=== PATIENT | female | born 1955 | race Caucasian/White ===

== ENCOUNTER 2017-05-11 12:35 | Day surgery (SDC) | payer OTHER ==
[~2017-05-11] VITALS: Ht 160 cm; Wt 109.0 kg
[~2017-05-11 12:35] MED LIST: 0.9% Sodium Chloride 1,000 ML IV SCH; GLUC1CAP35 PO; OMEG-86 PO; OMEG1CAP20 PO; Sodium Chloride LOK Flush 10 mL Syringe IV PRN; fentaNYL-PF 50 mCg/mL 2 mL Inj IVPUSH PRN
[2017-05-11 13:08] VITALS: BP 118/67; PULSE 44; RESP 16; O2SAT 97
[2017-05-11 14:54] VITALS: BP 112/69; PULSE 42; RESP 12; O2SAT 95
[2017-05-11 15:08] VITALS: BP 119/67; PULSE 42; RESP 12; O2SAT 95
[2017-05-11 15:09] VITALS: BP 113/74; PULSE 48; RESP 14; O2SAT 96
--- NOTE | 2017-05-11 20:31 | ENDO ---
[address] [address] ENDOSCOPY PROCEDURE PATIENT: MICHAEL MENESES : 1955 MR#: [id number] ADMIT: 05/11/2017 JOB ID: [id number] PROCEDURE: Colonoscopy. INDICATION: Patient with a personal history of colon polyps. Patient's ASA classification is two. Mallampati score is two. MEDICATIONS: Versed 5 mg, fentanyl 100 mcg. INSTRUMENT USED: PCF H 190 DL PREPARATION QUALITY: Good. PROCEDURE DETAILS: After informed consent was obtained, the patient was brought into the GI suite, where she was placed on oxygen via nasal cannula and monitored with continuous pulse oximeter, telemetry, and blood pressure monitoring. A time-out was performed, then she was placed in the left lateral decubitus position and medications were administered for sedation. A digital rectal exam was performed, which was unremarkable. The colonoscope was then inserted into the rectum and advanced under direct visualization to the cecum, which was identified by the presence of the ileocecal valve and appendiceal orifice. Once the cecum was reached, the colonoscope was withdrawn back into the rectum as the mucosa and lumen were examined. In the rectum, retroflexion was performed. Following retroflexion, the remaining air in the rectum was suctioned and the procedure was completed. FINDINGS: 1. In the ascending colon, there were two polyps ranging in size from 3 mm to 4 mm. Both polyps were removed using a cold snare. 2. In the transverse colon, there were four polyps ranging in size from 5 mm to approximately 9-10 mm. All polyps were removed using a hot snare. 3. In the descending colon, there were three polyps ranging in size from 4 mm to 7 mm. The polyps were removed using a combination of hot and cold snares. 4. In the rectum, there was a diminutive polyp that was removed with cold biopsy forceps. 5. Internal hemorrhoids were noted on retroflexion. IMPRESSION: 1. Two ascending colon polyps. 2. Four transverse polyps. 3. Three descending colon polyps. 4. One rectal polyp. RECOMMENDATIONS: 1. Avoid NSAIDs and anticoagulants for 72 hours. 2. Repeat colonoscopy in two years. COMPLICATIONS: None. ESTIMATED BLOOD LOSS: Less than 5 mL.
--- NOTE | 2017-05-14 18:17 | PATH ---
SURGICAL PATHOLOGY Attending Physician:Jason Donato CASE STATUS: Signed Out PATIENT NAME: MICHAEL MENESES PID: [id number] : 1955 DATE COLLECTED:05/11/2017 23:36 SPECIMEN: 1: Colon, Polyp 2: Colon, Polyp 3: Colon, Polyp 4: Rectum, Biopsy CLINICAL HISTORY: 1). TRANSVERSE POLYP X4 2). ASCENDING POLYP X2 3). DESCENDING POLYP X3 4). RECTAL POLYP X1 FINAL DIAGNOSIS: 1.TRANSVERSE COLON POLYPS, BIOPSIES: TUBULAR ADENOMA X4. 2.ASCENDING COLON POLYPS, BIOPSIES: TUBULAR ADENOMA X2. 3.DESCENDING COLON POLYPS, BIOPSIES: TUBULAR ADENOMA X3. 4.RECTAL POLYP, BIOPSY: HYPERPLASTIC POLYP. ICD10 D12.6 GROSS DESCRIPTION: The specimen is received in four formalin filled containers labeled with the patient's name. 1). The specimen is labeled "trans" and consists of multiple portions of tissue which aggregate to 0.6 x 0.6 x 0.5 CM. The specimen is entirely submitted in cassette 1A. 2). The specimen is labeled "ascen" and consists of 2 portions of tissue which aggregate to 0.3 x 0.2 x 0.2 CM. The specimen is entirely submitted in cassette 2A. 3). The specimen is labeled "desc" and consists of 5 portions of tissue which aggregate to 0.5 x 0.4 x 0.4 CM. The specimen is entirely submitted in cassette 3A. 4). The specimen is labeled "rectal" and consists of 3 tiny portions of tissue which aggregate to 0.1 x 0.1 x 0.1 CM. The specimen is entirely submitted in cassette 4A. 05/12/2017DC MICRO DESCRIPTION: See diagnosis. ICD-9 CODES: CPT CODES: 1: 00319 2: 74226 3: 75702 4: 97639 Electronically Signed Out Seth Larkin MD, Ph.D. [facility] Pathology [facility] [address] [facility] [facility], [place] [address] Technical component performed at [facility], [address], [place], [address]
== END 2017-05-11 23:59 | disposition home or self-care (01) ==
LOC: END 12:35
PROVIDERS: ATTEND Internal Medicine Gastroenterology
DX: Z12.11 Encounter for screening for malignant neoplasm of colon (principal); Z86.010 Personal history of colon polyps; D12.3 Benign neoplasm of transverse colon; D12.2 Benign neoplasm of ascending colon; D12.4 Benign neoplasm of descending colon; K62.1 Rectal polyp; K64.8 Other hemorrhoids; E66.01 Morbid (severe) obesity due to excess calories; Z68.41 Body mass index [BMI] 40.0-44.9, adult
CPT/HCPCS: 45380; 45385; 99153; G0500; J2250; J3010; J7030